=== PATIENT | male | born 1955 | race Caucasian/White ===

== ENCOUNTER → 2022-07-02 08:44 | Outpatient (CLI) | payer OTHER, SELFPAY ==
--- NOTE | ~2022-07-02 | MR_ITS ---
MRI of the left shoulder Technique: Axial proton-density fat-sat images, coronal proton density fat-sat and T2 fat-sat images, and sagittal T1-weighted and T2 fat-sat images were acquired. Clinical History: Pain Findings: There is moderate AC joint degenerative change. No significant subacromial spur. Coracoclav icular, coracoacromial, and coracohumeral ligaments appear intact. There is complete, full-thickness tear involving the entire supraspinatus tendon, which is retracted to the 12:00 position of the humeral head. Fluid-filled gap measures approximately 2.8 x 3.5 cm in ex tent. Infraspinatus tendon is intact, without partial or full-thickness tear. Subscapularis tendon is intact, with moderate tendinosis. Tendon of the long head of the biceps is intact, with probable int ra-articular tendinosis. No definite labral tear seen. Small glenohumeral joint effusion is present, with fluid passing through the rotator cuff defect into the subacromial/subdeltoid bursa. No degenerative change of the glenohumeral joint. No muscle atroph y or edema identified. Inferior glenohumeral ligament is intact. Impression: Complete, full-thickness tear of the supraspinatus tendon, as detailed above. Moderate subscapularis and intra-articular biceps tendinosis. Moderate AC joint degenerative change. Reviewed, dictated and finalized at [facility]. Impression: Complete, full-thickness tear of the supraspinatus tendon, as detailed above. Moderate subscapularis and intra-articular biceps tendinosis. Moderate AC joint degenerative change.
== END ==
PROVIDERS: PCP Family Medicine; Visit Provider Orthopaedic Surgery
DX: M67.912 Unspecified disorder of synovium and tendon, left shoulder (principal); M75.122 Complete rotator cuff tear or rupture of left shoulder, not specified as traumatic; M19.012 Primary osteoarthritis, left shoulder
CPT/HCPCS: 73221

== ENCOUNTER 2022-08-07 11:06 | Outpatient (CLI) | payer OTHER, SELFPAY ==
[2022-08-07 14:14] LABS: Basophils Absolute Auto 0.1 K/mm3 (0.0-0.1); Basophils Percent Auto 0.9 % (0.2-1.2); Eosinophils Absolute Auto 0.1 K/mm3 (0-0.3); Eosinophils Percent Auto 1.1 % (0-4.4); Hematocrit 43.7 % (42.0-52.0); Hemoglobin 14.6 g/dL (14.0-18.0); Immature Granulocyte Absolute 0.04 K/mm3 (0.00-0.031); Immature Granulocyte Percent A 0.4 % (0-0.5); Lymphocytes Absolute Auto 2.35 K/mm3 (0.9-3.2); Lymphocytes Percent Auto 25.6 % (18.3-44.2); Mean Corpuscular HGB Conc 33.4 g/dl (32-36); Mean Corpuscular Hemoglobin 31.9 pg (26-34); Mean Corpuscular Volume 95.4 fl (80-100); Mean Platelet Volume 10.5 fl (7.4-10.4); Monocytes Percent Auto 10.9 % (2.6-8.5); Neutrophils Absolute Auto 5.6 K/mm3 (1.3-6.7); Neutrophils Percent Auto 61.1 % (45.5-73.1); Platelet Count Result 351 k/mm3 (150-375); Red Blood Count 4.58 M/mm3 (4.6-6.20); White Blood Count 9.2 K/mm3 (4.5-10.0)
[2022-08-07 14:32] LABS: Alanine Aminotransferase 23 U/L (6-50); Albumin Level 4.4 g/dL (3.5-5.1); Alkaline Phosphatase 52 U/L (38-126); Anion Gap 5 mmol/L (8-16); Aspartate Amino Transferase 28 U/L (17-59); Bilirubin,Total 0.8 mg/dL (0.2-1.3); Blood Urea Nitrogen 18 mg/dL (9-20); Carbon Dioxide 30 mmol/L (22-30); Chloride 103 mmol/L (98-107); Cholesterol 214 mg/dL (0-200); Estimated Glomerular Filt Rate > 60; Glucose 90 mg/dL (65-110); HDL Direct 80 mg/dL; Sodium 138 mmol/L (137-145); Triglycerides 74 mg/dL (<150)
[2022-08-07 14:52] LABS: LDL Cholesterol Direct 120 mg/dL
[2022-08-07 15:00] LABS: Prostate Specific Antigen 2.8 ng/mL (< OR = 4.0)
== END 2022-08-07 11:07 | disposition home or self-care (01) ==
LOC: ANHGOSHLAB 11:07
PROVIDERS: PCP Family Medicine; Visit Provider Family Medicine
DX: E78.5 Hyperlipidemia, unspecified (principal); Z12.5 Encounter for screening for malignant neoplasm of prostate
CPT/HCPCS: 36415; 80053; 80061; 84153; 85025; G0103

== ENCOUNTER 2023-03-30 12:31 | Outpatient (CLI) | payer OTHER, SELFPAY ==
--- NOTE | 2023-03-30 12:37 | ECG_ITS ---
Measurements Intervals [place] Rate: 78 P: 74 [place]: 165 QRS: 24 QRSD: 93 T: 63 QT: 378 QTc: 431 Interpretive Statements SINUS RHYTHM WITH SINUS ARRHYTHMIA INCOMPLETE RIGHT BUNDLE BRANCH BLOCK BASELINE ARTIFACT- I, III, AVR, AVL, AVF, V1-V2 BORDERLINE ECG NO PREVIOUS ECG AVAILABLE FOR COMPARISON Electronically Signed On 03-30-2023 12:56:53 AIR INTELLIGENCE SPECIALIST by Jorge L Heath D.O.
== END 2023-03-30 12:32 | disposition home or self-care (01) ==
LOC: ANHSURGERY 12:34
PROVIDERS: PCP Family Medicine; Visit Provider Orthopaedic Surgery
DX: Z01.818 Encounter for other preprocedural examination (principal); I45.10 Unspecified right bundle-branch block; R93.1 Abnormal findings on diagnostic imaging of heart and coronary circulation; F17.200 Nicotine dependence, unspecified, uncomplicated
CPT/HCPCS: 93005

== ENCOUNTER 2023-04-01 02:01 | Day surgery (SDC) | payer OTHER, SELFPAY ==
--- NOTE | 2023-03-29 11:40 | PC.NURSE ---
Report to the Outpatient Waiting Room, entrance under the green pavilion located off [facility], at time _0600 on date __04/01/23 . Planned Procedure Time: _0730 . Time changes happen often and if your time is changed the preop area will call you the afternoon before. - You and your visitor will be asked to self-screen and do not enter if you have any COVID symptoms. - A mask is optional within the hospital at this time. Patients may have clear liquids (water, carbonated beverages, clear teas, apple juice) until 3 hours prior to surgery(4:30AM) with a maximum of 20 ounces. - No food from midnight until time of surgery - Infants may have breast milk until 4 hours before surgery, infant formula 6 hours prior to surgery. - Children will be allowed to drink immediately following surgery. If applicable, please bring a bottle or sippy cup to assist with drinking. Juice, water, soda, and popsicles are readily available. For infants on formula, please bring formula the day of surgery. Pacifiers are allowed. Take the following medications with a SIP of water the morning of surgery: ___NONE DO NOT STOP ANY OF YOUR OTHER PRESCRIPTION MEDICATIONS PRIOR TO SURGERY ?EXCEPT THE FOLLOWING Medications to discontinue per physician NONE Please no make-up, nail [place] islander, hairspray, perfume, deodorant, or body powder the day of surgery. No jewelry (including any body piercings) or valuables the day of surgery, leave them at home. Please take a shower or bath the night before, or the morning of, surgery with an antibacterial soap. Wear comfortable, loose fitting clothing. Children are encouraged to wear pajamas. - Jewelry must be removed prior to entering the operating room. Rings and piercings that are not removed may be cut off. - The hospital will not accept responsibility for valuables. - Please leave all valuables, including medications, at home the day of surgery. If you are going home after surgery, a licensed lumber driver must drive you home. - NO public transportation without another adult if you receive anesthesia. - We recommend that an adult stay with you for 24 hours following discharge. - We also recommend that you do not drive, make important decision, drink alcoholic beverages, or take any drugs that were not prescribed by your health care provider for at least 24 hours after your discharge time. Follow any additional instructions given to you from your surgeon. If you or anyone in your household have experienced Covid symptoms in the past week, please notify your surgeon or the nurse liaison at the phone number below for possible testing. Telephone instructions given to ___PATIENT and asked if any additional questions and then verbalized understanding. Patient advised to call surgeon office or pre surgery nurse liaison [phone] if any additional questions.
[2023-03-29 11:46] VITALS: BMI 23.6
[2023-04-01] VITALS (7 sets, daily range): BP systolic 130–157; BP diastolic 81–98; PULSE 60–83; RESP 13–14; TEMP 36.1–36.6; O2SAT 96–100
--- NOTE | 2023-04-01 07:19 | WPDHPUPDATE1 ---
History and Physical Update Update Date/Time: 04/01/23 07:19 History and Physical has been reviewed, including an updated exam of the patient. There are NO changes in the patient's condition. Risks, benefits, and alternatives have been discussed and questions answered. Patient agrees to proceed with procedure.
[2023-04-01] MEDS: LACTATED RINGERS 1,000 ML 30 ML IV CONT ×2 (09:15→13:05)
[2023-04-01] MEDS: ACETAMINOPHEN 500 MG TABLET 1000 MG PO (09:15)
[2023-04-01] MEDS: KETOROLAC 15 MG/ML VIAL (*BKC) IV PUSH (09:15)
--- NOTE | 2023-04-01 09:58 | WPDANESEPPF ---
Anes - Initial Pre Proc Eval Procedure: Operation Date: 04/01/23 10:30 Proposed Procedures p Arthroscopic Left Rotator Cuff Repair, Sub Acromial Decompression Biceps Tenodesis - Choco Russo MD Date/Time: 04/01/23 09:58 Surgeon: Choco Russo MD Pre Op Diagnosis: Lt Rot Cuff Tear, Biceps Tendinosis Patient Data Age: 67 Gender: M Height: 1.78 m Weight: 68.2 kg Last Vital Signs Temp 36.6 C 04/01/23 09:15 Pulse 60 04/01/23 09:15 Resp 14 04/01/23 09:15 BP 145/81 H 04/01/23 09:15 Pulse Ox 100 04/01/23 09:15 O2 Del Method Room Air 04/01/23 09:15 Allergies Allergy/AdvReac Type Severity Reaction Status Date / Time Penicillins Allergy Unknown reaction Verified 03/29/23 11:31 unknow to pt, childhood allergy Home Medications Medication Instructions Recorded Confirmed Type No Home Medications 06/25/22 03/29/23 History Patient hx anesthesia problems: none Family hx anesthesia problems: none Results Review: All pre-operative results and documents have been reviewed as part of the pre-operative evaluation. [facility] Past Medical History Medical History History of stress test (~2009) Impingement syndrome, shoulder, left Internal derangement of left shoulder Surgical History Surgical History History of hand surgery Lucio hand trigger fingers History of hand surgery left thumb surgery Family History Family History Father Family history of congenital heart disease Mother Family history of arthritis Social History Social History Smoking packs per day: 1 Smoking cigarettes per day: 20.0 Years smoked: 30 Smoking pack-years: 30.00 Smoking status: Current every day smoker Tobacco type: cigarettes Alcohol intake: current Drinks per week: 12 Alcohol use details: daily Substance use: current Substance use type: marijuana Last use: 03/27/23 Lack of Transportation: No Lack of Food: Never True Concerned About Future Housing: No Difficulty Paying Gas/Electric Bills: No Difficulty Paying for Meds: No Currently Unemployed: No Education: Bachelor's Degree Difficulty w/ Childcare or Family Care: No Living arrangements: alone Spiritual care concerns: No Anes - Eval Final PreProcedure Day of Procedure 04/01/23 09:58 Patient weight: normal Heart: regular rate and rhythm Lungs: decreased breath sounds Airway: Mallampati scale class II Neurological: alert and oriented Last oral intake: >/= 8 hours ASA classification: III Emergent: no Anesthetic plan: proceed Anesthesia type and monitoring: general ETT and standard monitoring Results Review: All pre-operative results and documents have been reviewed as part of the pre-operative evaluation. Informed Consent: The patient's anesthetic plan and its attendant risks and benefits were discussed with the patient/family/POA. Questions were solicited and answers provided to the satisfaction of the patient/family/POA.
--- NOTE | 2023-04-01 10:14 | WPDANESPNB ---
Anes - Peripheral Nerve Block Date/Time: 04/01/23 10:14 I have discussed with the patient/family/POA the placement of a peripheral nerve block for post-operative pain management, including associated risks, benefits, complications, and side effects. Alternative methods of post-operative analgesia were detailed. Questions were solicited and answers provided to the satisfaction of the patient/family/POA. Time-Out: A pre-procedural Time-Out was completed immediately before starting the procedure and confirmed: Patient Identification, Site, Procedure, Patient Position and the Availability of Requisite Equipment. Clinical Indications: Acute post-operative pain management requested by the operative surgeon. Nerve Block Insertion Note Anes-nerve block: interscalene left Patient position: supine Skin prep: chlorhexidine Needle: 22 gauge, stimulating, insulated echogenic needle. Needle length: 50 mm Technique: nerve stimulation lost at (mA) and ultrasound Technique comment: mid2mg [id number] Injectate: bupivacaine 0.5% with epi 5 mcg/ml (30ml no epi) and dexamethasone (mg) Observations: tolerated well Complications: none Procedure start time:: 1004 Procedure end time:: 1010
[2023-04-01] MEDS: ceFAZolin 2 GM/D5W 50 ML 2 GM/50 ML BAG IVPB (10:18)
[2023-04-01] MEDS: EPINEPHrine HCL INJ 1 MG/ML AMPUL IRRIGATION (11:05)
--- NOTE | 2023-04-01 12:47 | W.PM.PROC2 ---
Procedure Note - Detailed Date of Procedure 04/06/23 Pre-op Diagnosis Lt Rot Cuff Tear, Biceps Tendinosis Post-op Diagnosis Same (1. Rotator cuff tear complete 2. Subacromial impingement 3. Biceps tendinosis) Procedure Performed Left shoulder 1. Arthroscopic rotator cuff repair 2. Arthroscopic subacromial decompression 3. Arthroscopic biceps tenodesis Surgeon Choco Russo MD Anesthesia General and Regional ( interscalene block) Findings Medium to large tear. Wide, with mild retraction. Severely frayed biceps. 2 tunnel repair with central mattress suture to lateral anchor supplementation. Acromioplasty. Biceps tenodesis incorporated into the anterior tunnel. Description of Procedure Preoperative antibiotics were given. An interscalene block was administered in the preoperative area. The patient was bought brought to the operating room. A general anesthetic was administered. The patient was carefully positioned in the beach chair position. The head and neck were carefully positioned. The non operative extremity was also carefully positioned. The shoulder was prepped and draped in the usual sterile fashion. Examination was performed. Standard posterior and anterior arthroscopic portals were established. Inflow achieved with the arthroscopic pump using saline and epinephrine. The glenohumeral joint was carefully inspected. The cartilage was healthy. Minimal split fraying of the subscapularis. Severe biceps tendinosis with fraying. The biceps was released for later tenodesis. Attention was turned to the subacromial space. A complete bursectomy was performed. The rotator cuff and footprint were lightly debrided. A modest acromioplasty was performed. The tear configuration was carefully assessed. At this point, 2 tunnels were created at the rotator cuff. The ArthroTunneler technique was utilized. Three sutures were passed through each tunnel. All sutures were then passed through the cuff tissue. The sutures were tied arthroscopically. An additional horizontal mattress was placed centrally. This was brought to a SwiveLock anchor laterally. The arthroscopic instruments were removed. The wounds were closed with 3-0 Monocryl subcuticular suture and steri strips. There were no complications. A sling was applied and the patient brought to the recovery room. Implants Arthrex SwiveLock anchor 4.5 mm. Estimated Blood Loss 10 Complications No immediate complications Condition Stable Disposition PACU [facility] Billing Surgery - Charge Forward: Surgery Billing
== END 2023-04-01 14:43 | disposition home or self-care (01) ==
PROVIDERS: PCP Family Medicine; Visit Provider Orthopaedic Surgery
PROC: (CPT 29805; principal; 2023-04-01 10:30)
DX: M75.122 Complete rotator cuff tear or rupture of left shoulder, not specified as traumatic (principal); M75.42 Impingement syndrome of left shoulder; M75.22 Bicipital tendinitis, left shoulder; G89.18 Other acute postprocedural pain; F17.210 Nicotine dependence, cigarettes, uncomplicated; F12.90 Cannabis use, unspecified, uncomplicated
CPT/HCPCS: 29827; 29828; 29826; 64415; 93005; A4565; A9270; J0171; J0690; J1100; J1885; J2250; J2405; J2704; J3010; J7120

== ENCOUNTER 2023-11-03 09:37 | Outpatient (CLI) | payer OTHER, SELFPAY ==
[2023-11-03 12:49] LABS: Basophils Absolute Auto 0.1 K/mm3 (0.0-0.1); Basophils Percent Auto 1.3 % (0.2-1.2); Eosinophils Absolute Auto 0.2 K/mm3 (0-0.3); Eosinophils Percent Auto 3.2 % (0-4.4); Hematocrit 42.7 % (42.0-52.0); Hemoglobin 14.1 g/dL (14.0-18.0); Immature Granulocyte Absolute 0.02 K/mm3 (0.00-0.031); Immature Granulocyte Percent A 0.3 % (0-0.5); Lymphocytes Absolute Auto 2.01 K/mm3 (0.9-3.2); Lymphocytes Percent Auto 29.5 % (18.3-44.2); Mean Corpuscular Volume 96.8 fl (80-100); Mean Platelet Volume 11.3 fl (7.4-10.4); Monocytes Absolute Auto 0.8 K/mm3 (0.1-0.6); Monocytes Percent Auto 11.4 % (2.6-8.5); Neutrophils Absolute Auto 3.7 K/mm3 (1.3-6.7); Neutrophils Percent Auto 54.3 % (45.5-73.1); Platelet Count Result 325 k/mm3 (150-375); Red Blood Count 4.41 M/mm3 (4.6-6.20); Red Cell Distribution Width 13.2 % (11.5-14.5); White Blood Count 6.8 K/mm3 (4.5-10.0)
[2023-11-03 13:02] LABS: Alanine Aminotransferase 22 U/L (6-50); Albumin Level 4.2 g/dL (3.5-5.1); Alkaline Phosphatase 51 U/L (38-126); Anion Gap 8 mmol/L (4-12); Aspartate Amino Transferase 52 U/L (17-59); Bilirubin,Total 0.6 mg/dL (0.2-1.3); Blood Urea Nitrogen 15 mg/dL (9-20); Carbon Dioxide 25 mmol/L (22-30); Chloride 103 mmol/L (98-107); Estimated Glomerular Filt Rate > 60; Glucose 103 mg/dL (65-110); Potassium 4.4 mmol/L (3.4-5.0); Sodium 136 mmol/L (137-145)
[2023-11-03 13:27] LABS: Prostate Specific Antigen 3.2 ng/mL (< OR = 4.0)
[2023-11-03 14:08] LABS: Hepatitis C Virus Antibody Negative (Negative)
[2023-11-05 12:15] LABS: Cholesterol 215 mg/dL (0-200); HDL Direct 79 mg/dL; Triglycerides 61 mg/dL (<150)
[2023-11-05 12:26] LABS: LDL Cholesterol Direct 111 mg/dL
== END 2023-11-03 09:38 | disposition home or self-care (01) ==
PROVIDERS: PCP Family Medicine; Visit Provider Nurse Practitioner Family
DX: Z00.00 Encounter for general adult medical examination without abnormal findings (principal); F17.210 Nicotine dependence, cigarettes, uncomplicated; Z12.5 Encounter for screening for malignant neoplasm of prostate; Z11.59 Encounter for screening for other viral diseases; E78.5 Hyperlipidemia, unspecified; R53.83 Other fatigue; Z13.220 Encounter for screening for lipoid disorders
CPT/HCPCS: 36415; 80053; 80061; 84153; 84443; 85025; 86803; G0103

== ENCOUNTER 2024-11-02 08:30 | Outpatient (CLI) | payer OTHER, SELFPAY ==
--- NOTE | ~2024-11-02 | NM_ITS ---
EXAMINATION: NM stress w perf spect multi DATE: 11/02/2024 10:48 INDICATION: Chest pain TECHNIQUE: Rest images were obtained following intravenous administration of 10.7 mCi Tc99m tetrofosm in ([employer]). The patient performed an exercise activity. At peak exercise, 33.3 mCi Tc99m tetrofosmi n ([employer]) was administered intravenously, and stress images were obtained. Data was reconstructed i nto short axis and horizontal and vertical long axis SPECT images. Gated SPECT images were also obtai dinora. COMPARISON: None. FINDINGS: There is normal left ventricular perfusion without definite evidence of reversible or fixed perfusion abnormality to suggest ischemia or infarction. There is normal left ventricular chamber size, wall motion and ejection fraction. Left ventricular ejection fraction measures 67%. IMPRESSION: 1. Normal myocardial perfusion at rest and during stress. 2. Left ventricular ejection fraction measuring 67%. Reviewed, dictated and finalized at location A.
--- NOTE | 2024-11-02 08:42 | EST_ITS ---
Patient Info Name: Rebel Padilla Age: 69 years : 1955 Gender: Male Ht: 71 in Wt: 155 lbs BSA: 1.87 m2 HR: 44 bpm BP: 125 / 73 mmHg Exam Date: 11/02/2024 8:42 AM Patient Status: O Admit Date: 11/02/2024 Exam Type: CA stress test treadmill w NM A nuclear stress test was performed. Staff Referring Physician: Caro Wilson Attending Provider: Caro Wilson Exercise Technologist: Kelsi Avery Exercise Physician: Jorge L Heath DO Summary 1. 1. Negative Joaquín exercise stress test for ischemic ST changes by ECG criteria. 2. 2. Good functional capacity, achieving 10 METs of workload. 3. 3. Hypertensive response to exercise. 4. 4. Appropriate HR response to exercise. 5. 5. Appropriate HR recovery at 1 minute post exercise. 6. 6. Nuclear scan to follow and will be reported separately. Please correlate with it. 7. 7. Patient informed of the above results. Protocol: Joauqín Stress ECG Details Stage: REST Duration (min): 1 min : 36 sec Speed (mph): 0.0 Grade (%): 0 HR (bpm): 44 SBP (mmHg): 125 DBP (mmHg): 73 METS: --- Stage: REST Duration (min): 2 min : 53 sec Speed (mph): 0.0 Grade (%): 0 HR (bpm): 57 SBP (mmHg): 125 DBP (mmHg): 73 METS: --- Stage: STAGE 1 Duration (min): 1 min : 0 sec Speed (mph): 1.7 Grade (%): 10 HR (bpm): 94 SBP (mmHg): 125 DBP (mmHg): 73 METS: --- Stage: STAGE 1 Duration (min): 2 min : 0 sec Speed (mph): 1.7 Grade (%): 10 HR (bpm): 122 SBP (mmHg): 125 DBP (mmHg): 73 METS: --- Stage: STAGE 1 Duration (min): 3 min : 0 sec Speed (mph): 1.7 Grade (%): 10 HR (bpm): 94 SBP (mmHg): 180 DBP (mmHg): 89 METS: --- Stage: STAGE 2 Duration (min): 1 min : 0 sec Speed (mph): 2.5 Grade (%): 12 HR (bpm): 101 SBP (mmHg): 180 DBP (mmHg): 89 METS: --- Stage: STAGE 2 Duration (min): 2 min : 0 sec Speed (mph): 2.5 Grade (%): 12 HR (bpm): 112 SBP (mmHg): 222 DBP (mmHg): 86 METS: --- Stage: STAGE 2 Duration (min): 3 min : 0 sec Speed (mph): 2.5 Grade (%): 12 HR (bpm): 115 SBP (mmHg): 222 DBP (mmHg): 86 METS: --- Stage: STAGE 3 Duration (min): 1 min : 0 sec Speed (mph): 3.4 Grade (%): 14 HR (bpm): 126 SBP (mmHg): 228 DBP (mmHg): 88 METS: --- Stage: STAGE 3 Duration (min): 2 min : 0 sec Speed (mph): 3.4 Grade (%): 14 HR (bpm): 135 SBP (mmHg): 228 DBP (mmHg): 88 METS: --- Stage: STAGE 3 Duration (min): 2 min : 20 sec Speed (mph): 3.4 Grade (%): 14 HR (bpm): 139 SBP (mmHg): 228 DBP (mmHg): 88 METS: --- Stage: RECOVERY Duration (min): 0 min : 39 sec Speed (mph): 0.0 Grade (%): 0 HR (bpm): 129 SBP (mmHg): 243 DBP (mmHg): 91 METS: --- Stage: RECOVERY Duration (min): 1 min : 39 sec Speed (mph): 0.0 Grade (%): 0 HR (bpm): 96 SBP (mmHg): 243 DBP (mmHg): 91 METS: --- Stage: RECOVERY Duration (min): 2 min : 39 sec Speed (mph): 0.0 Grade (%): 0 HR (bpm): 77 SBP (mmHg): 243 DBP (mmHg): 91 METS: --- Stage: RECOVERY Duration (min): 3 min : 39 sec Speed (mph): 0.0 Grade (%): 0 HR (bpm): 69 SBP (mmHg): 244 DBP (mmHg): 82 METS: --- Stage: RECOVERY Duration (min): 4 min : 39 sec Speed (mph): 0.0 Grade (%): 0 HR (bpm): 62 SBP (mmHg): 244 DBP (mmHg): 82 METS: --- Stage: RECOVERY Duration (min): 5 min : 39 sec Speed (mph): 0.0 Grade (%): 0 HR (bpm): 69 SBP (mmHg): 193 DBP (mmHg): 82 METS: --- Stage: RECOVERY Duration (min): 6 min : 39 sec Speed (mph): 0.0 Grade (%): 0 HR (bpm): 74 SBP (mmHg): 193 DBP (mmHg): 82 METS: --- Stage: RECOVERY Duration (min): 7 min : 39 sec Speed (mph): 0.0 Grade (%): 0 HR (bpm): 66 SBP (mmHg): 149 DBP (mmHg): 84 METS: --- Stage: RECOVERY Duration (min): 8 min : 39 sec Speed (mph): 0.0 Grade (%): 0 HR (bpm): 68 SBP (mmHg): 149 DBP (mmHg): 84 METS: --- Stage: RECOVERY Duration (min): 9 min : 39 sec Speed (mph): 0.0 Grade (%): 0 HR (bpm): 70 SBP (mmHg): 141 DBP (mmHg): 84 METS: --- Stage: RECOVERY Duration (min): 10 min : 39 sec Speed (mph): 0.0 Grade (%): 0 HR (bpm): 65 SBP (mmHg): 148 DBP (mmHg): 84 METS: --- Stage: RECOVERY Duration (min): 11 min : 39 sec Speed (mph): 0.0 Grade (%): 0 HR (bpm): 68 SBP (mmHg): 148 DBP (mmHg): 84 METS: --- Stage: RECOVERY Duration (min): 12 min : 39 sec Speed (mph): 0.0 Grade (%): 0 HR (bpm): 64 SBP (mmHg): 133 DBP (mmHg): 80 METS: --- Stage: RECOVERY Duration (min): 12 min : 54 sec Speed (mph): 0.0 Grade (%): 0 HR (bpm): 61 SBP (mmHg): 133 DBP (mmHg): 80 METS: --- Rest HR: 57 bpm Peak HR: 141 bpm Rest Sys BP: 125 mmHg Peak Sys BP: 244 mmHg Max Pred HR: 152 bpm % Max Pred HR: 93 % Target HR: 129 bpm Max RPP: 34,404 bpm*mmHg Garcia Score: -0 BP Response: Patient exhibited a hypertensive response with stress Termination Reason: Reached target heart rate or workload Cardiac Symptoms: Shortness of breath Max ST Seg Deviation: 1.70 mm Total Time: 8 min : 20 sec Rest Fernandez BP: 73 mmHg Peak Fernandez BP: 82 mmHg Angina Score: None Total METS: 10.3 Resting ECG Sinus bradycardia. Stress ECG No ST changes. Arrhythmias None. Report Signatures
== END 2024-11-02 08:31 | disposition home or self-care (01) ==
PROVIDERS: PCP Family Medicine; Visit Provider Nurse Practitioner Family
DX: R07.89 Other chest pain (principal)
CPT/HCPCS: 78452; 93017; A9502

== ENCOUNTER 2024-11-10 08:52 | Outpatient (CLI) | payer OTHER, SELFPAY ==
--- NOTE | ~2024-11-10 | CT_ITS ---
CT Scan of the Chest without Contrast: Clinical Indication: Lung cancer screening, nicotine dependence Technique: Contiguous sections were acquired throughout the chest without intravenous contrast. Dose reduction technique was used on this scan by utilizing automated exposure control and iterative reconstruction technique. The dose-length product (DLP) was 79.32 mGy-cm. Findings: There is no evidence of any significant mediastinal, hilar or axillary lymphadenopathy. The mediastinal soft tissues appear normal. There is no evidence of pleural or pericardial effusion. The lungs are clear. No pulmonary nodules or infiltrates are noted. There is mild emphysema. Images through the upper abdomen reveal no abnormalities. Impression: Lung RADS 1: Negative. 12 month follow-up screening CT advised. Reviewed, dictated and finalized at location . Impression: Lung RADS 1: Negative. 12 month follow-up screening CT advised.
== END 2024-11-10 08:53 | disposition home or self-care (01) ==
PROVIDERS: PCP Family Medicine; Visit Provider Nurse Practitioner Family
DX: Z12.2 Encounter for screening for malignant neoplasm of respiratory organs (principal); F17.210 Nicotine dependence, cigarettes, uncomplicated
CPT/HCPCS: 71271